=== PATIENT | female | born 1975 | race Caucasian/White ===

== ENCOUNTER 2020-12-02 17:53 | Emergency (ER) | payer MEDICAID ==
--- NOTE | 2020-12-02 18:42 | PCM.EKG ---
#1 Interpretation EKG Date: 12/02/20 Time: 18:00 Rhythm: NSR ST-T: Normal
--- NOTE | 2020-12-02 19:48 | EDM.PDOC ---
ED HPI GENERAL MEDICAL PROBLEM - General Chief Complaint: General Stated Complaint: CHEST PAIN, HIGH BP Time Seen by Provider: 12/02/20 19:45 - History of Present Illness INITIAL COMMENTS - FREE TEXT/NARRATIVE: History of present illness: [] The patient complains of dizziness for 3 to 4 days. She feels like she is spinning when she opens her eyes at times. It lasts for a little while she feels like she cannot get up and walk safely. She does not have any visual disturbance showing rotation or rotation of vertigo. Today she is a little lightheaded. The patient's had sinus congestion off and on but is much is 2 weeks at a time over the last month. She has felt increasingly fatigued for the entire month. Today all day she had tightness in her chest even at rest. Exertion did not change the tightness. There was no diaphoresis nausea or dyspnea. The patient's blood pressure been elevated like 153/90 today. The patient usually has a normal blood pressure. The patient has sinus congestion off and on for a month and has pressure in her sinuses now. Her sinus congestion and postnasal drip is been a little better today than it had been over the last few days. Patient missed her control pill recently. She is only had you sexual contact once in the last month. The patient has no nausea vomiting diarrhea. She has minimal cough and scratchiness in her throat. The patient is not treated for blood pressure or diabetes. She is a non-smoker. Her mother did have heart disease. Review of systems: As per history of present illness and below otherwise all systems reviewed and negative. Past medical history: As per history of present illness and as reviewed below otherwise noncontributory. Surgical history: As per history of present illness and as reviewed below otherwise noncontributory. Social history: No reported history of drug or alcohol abuse. Family history: As per history of present illness and as reviewed below otherwise noncontributory. Physical exam: Constitutional - well developed, well-nourished and in no acute distress HEENT -sinuses slightly tender with the maxillary sinuses being more tender than the frontal. Nares are clear. Voice is normal. Normocephalic, no evidence of trauma - external nose and mouth normal - no mass in neck and no JVD - mucosae moist EYES - full EOM, PERRL, no icterus - no evidence of inflammation, injection, or drainage Respiratory - no respiratory distress, equal bilateral expansion, lungs clear to auscultation and no abnormal lung sounds Cardiovascular - Regular Rhythm with S1 and S2 appreciated and no murmur, gallop or rub. GI - abdomen soft without distension or organomegaly - normal bowel sounds - no guard or rebound Musculoskeletal no gross deformity of long bones or joints - no tenderness, swelling or edema Neurologic - Alert and oriented times four - CN II-XII grossly intact - motor sensory and coordination symmetrically normal Psychiatric - appropriate mood and affect with normal thought content Hematologic - No petechiae or purpura - mucosa appropriate color and sclera not pale - normal nail bed color and refill Integument - no rash or evidence of trauma - normal turgor Diagnostics: [] Therapeutics: [] Impression: [] Plan: [] Definitive disposition and diagnosis as appropriate pending reevaluation and review of above. chest discomfort Pain Score (Numeric/FACES): 7 - Related Data Allergies Allergy/AdvReac Type Severity Reaction Status Date / Time latex Allergy Rash Verified 12/02/20 18:42 Penicillins Allergy Hives Verified 12/02/20 18:42 codeine AdvReac Headache Verified 12/02/20 18:42 Home Meds: Home Meds Amitriptyline [Elavil] 25 mg PO DAILY 07/28/14 [History] RABEprazole [Aciphex] 20 mg PO DAILY 07/28/14 [History] Meclizine [Antivert] 25 mg PO TID PRN #15 tab 12/02/20 [Rx] cephALEXin [Cephalexin] 500 mg PO BID #14 capsule 12/02/20 [Rx] Past Medical History HEENT History: Reports: None Cardiovascular History: Reports: None Respiratory History: Reports: None Gastrointestinal History: Reports: Other (See Below) Other Gastrointestinal History: acid reflux Genitourinary History: Reports: None 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: Musculoskeletal History: Reports: Back Pain, Chronic, Fibromyalgia, Neck Pain, Chronic Neurological History: Reports: Headaches, Chronic, Migraines Psychiatric History: Reports: None Endocrine/Metabolic History: Reports: None 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 Hematologic History: Reports: None Immunologic History: Reports: None Oncologic (Cancer) History: Reports: None Dermatologic History: Reports: None - Infectious Disease History Infectious Disease History: Reports: None - Past Surgical History Head Surgeries/Procedures: Reports: None GI Surgical History: Reports: Appendectomy Female Surgical History: Reports: None Musculoskeletal Surgical History: Reports: Carpal Tunnel, Shoulder Surgery Social & Family History - Caffeine Use Caffeine Use: Reports: Coffee - Recreational Drug Use Recreational Drug Use: No ED ROS GENERAL - Review of Systems Review Of Systems: Comprehensive ROS is negative, except as noted in HPI. ED EXAM, GENERAL - Physical Exam Exam: See Below Free Text/Narrative:: My physical exam is in the HPI Course - Vital Signs Text/Narrative:: 2039 hrs. the chest x-ray is normal by my interpretation The patient had a chest pressure that was the same all day. She also has some increased dyspnea on exertion with a history of asthma. This is probably related to a viral infection but she seemed to have otitis media and sinus congestion that was persistent for months I decided to place her on antibiotics. She had been on intermittent doses of Zithromax for dry eyes according to her. 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 She said the Zithromax upset her stomach. It did not help her sinus symptoms. The patient had the same chest pressure all day and her troponin was less than 0.05 after persistence for more than 12 hours. I did not feel any need to repeat it. She is low risk. Heart score is 1 or 2 and she is low risk. Last Recorded V/S: Last Vital Signs Temp 35.5 C L 12/02/20 18:44 Pulse 80 12/02/20 18:44 Resp 18 12/02/20 18:44 BP 141/89 H 12/02/20 18:44 Pulse Ox 98 12/02/20 18:44 - Orders/Labs/Meds Orders: Active Orders 24 hr Category Date Time Status EKG Documentation Completion [RC] AM Care 12/02/20 19:58 Active Sodium Chloride 0.9% [Saline Flush] Med 12/02/20 19:58 Active 10 ml FLUSH ASDIRECTED PRN Sodium Chloride 0.9% [Saline Flush] Med 12/02/20 19:58 Active 2.5 ml FLUSH ASDIRECTED PRN Saline Lock Insert [OM.PC] Stat Oth 12/02/20 19:58 Ordered Medication Orders Sodium Chloride (Sodium Chloride 0.9% 10 Ml Syringe) 10 ml FLUSH ASDIRECTED PRN PRN Reason: Keep Vein Open Sodium Chloride (Sodium Chloride 0.9% 2.5 Ml Syringe) 2.5 ml FLUSH ASDIRECTED PRN PRN Reason: Keep Vein Open Labs: Laboratory Tests 12/02/20 12/02/20 12/02/20 Range/Units 19:45 19:50 19:50 WBC 7.50 (4.0-11.0) K/uL RBC 4.83 (4.30-5.90) M/uL Hgb 14.6 (12.0-16.0) g/dL Hct 43.1 (36.0-46.0) % MCV 89.2 (80.0-98.0) fL MCH 30.2 (27.0-32.0) pg MCHC 33.9 (31.0-37.0) g/dL RDW Std Deviation 42.7 (28.0-62.0) fl RDW Coeff of Irene 13 (11.0-15.0) % Plt Count 389 (150-400) K/uL MPV 9.10 (7.40-12.00) fL Neut % (Auto) 46.6 L (48.0-80.0) % Lymph % (Auto) 40.4 H (16.0-40.0) % [place] % (Auto) 6.1 (0.0-15.0) % Eos % (Auto) 5.6 (0.0-7.0) % Baso % (Auto) 1.3 (0.0-1.5) % Neut # (Auto) 3.5 (1.4-5.7) K/uL Lymph # (Auto) 3.0 H (0.6-2.4) K/uL [place] # (Auto) 0.5 (0.0-0.8) K/uL Eos # (Auto) 0.4 (0.0-0.7) K/uL Baso # (Auto) 0.1 (0.0-0.1) K/uL Nucleated RBC % 0.0 /100WBC Nucleated RBCs # 0 K/uL Sodium 139 (136-145) mmol/L Potassium 3.4 L (3.5-5.1) mmol/L Chloride 104 (98-107) mmol/L Carbon Dioxide 26.8 (21.0-32.0) mmol/L BUN 8 (7.0-18.0) mg/dL Creatinine 1.0 (0.6-1.0) mg/dL Est Cr Clr Drug Dosing 58.77 mL/min Estimated GFR (MDRD) 60.0 ml/min Glucose 87 (74-106) mg/dL Calcium 7.9 L (8.5-10.1) mg/dL Total Bilirubin 0.2 (0.2-1.0) mg/dL AST 21 (15-37) IU/L ALT 27 (14-63) IU/L Alkaline Phosphatase 47 (46-116) U/L Troponin I (0.000-0.056) ng/mL Total Protein 8.3 H (6.4-8.2) g/dL Albumin 3.9 (3.4-5.0) g/dL Globulin 4.4 H (2.6-4.0) g/dL Albumin/Globulin Ratio 0.9 (0.9-1.6) HCG, Qual (NEG) Urine Color YELLOW Urine Appearance CLEAR Urine pH 5.5 (5.0-8.0) Ur Specific [place] 1.020 (1.001-1.035) Urine Protein NEGATIVE (NEGATIVE) mg/dL Urine Glucose (UA) NEGATIVE (NEGATIVE) mg/dL Urine Ketones NEGATIVE (NEGATIVE) mg/dL Urine Occult Blood TRACE-INTACT H (NEGATIVE) Urine Nitrite NEGATIVE (NEGATIVE) Urine Bilirubin NEGATIVE (NEGATIVE) Urine Urobilinogen 0.2 (<2.0) EU/dL Ur Leukocyte Esterase NEGATIVE (NEGATIVE) Urine RBC 1-3 (0-2/HPF) Urine WBC 0-1 (0-5/HPF) Ur Epithelial Cells RARE (NONE-FEW) Urine Bacteria RARE (NEGATIVE) Urine Mucus LIGHT (NONE-MOD) 12/02/20 12/02/20 Range/Units 19:50 19:50 WBC (4.0-11.0) K/uL RBC (4.30-5.90) M/uL Hgb (12.0-16.0) g/dL Hct (36.0-46.0) % MCV (80.0-98.0) fL MCH (27.0-32.0) pg MCHC (31.0-37.0) g/dL RDW Std Deviation (28.0-62.0) fl RDW Coeff of Irene (11.0-15.0) % Plt Count (150-400) K/uL MPV (7.40-12.00) fL Neut % (Auto) (48.0-80.0) % Lymph % (Auto) (16.0-40.0) % [place] % (Auto) (0.0-15.0) % Eos % (Auto) (0.0-7.0) % Baso % (Auto) (0.0-1.5) % Neut # (Auto) (1.4-5.7) K/uL Lymph # (Auto) (0.6-2.4) K/uL [place] # (Auto) (0.0-0.8) K/uL Eos # (Auto) (0.0-0.7) K/uL Baso # (Auto) (0.0-0.1) K/uL Nucleated RBC % /100WBC Nucleated RBCs # K/uL Sodium (136-145) mmol/L Potassium (3.5-5.1) mmol/L Chloride (98-107) mmol/L Carbon Dioxide (21.0-32.0) mmol/L BUN (7.0-18.0) mg/dL Creatinine (0.6-1.0) mg/dL Est Cr Clr Drug Dosing mL/min Estimated GFR (MDRD) ml/min Glucose (74-106) mg/dL Calcium (8.5-10.1) mg/dL Total Bilirubin (0.2-1.0) mg/dL AST (15-37) IU/L ALT (14-63) IU/L Alkaline Phosphatase (46-116) U/L Troponin I < 0.050 (0.000-0.056) ng/mL Total Protein (6.4-8.2) g/dL Albumin (3.4-5.0) g/dL Globulin (2.6-4.0) g/dL Albumin/Globulin Ratio (0.9-1.6) HCG, Qual NEGATIVE (NEG) Urine Color Urine Appearance Urine pH (5.0-8.0) Ur Specific [place] (1.001-1.035) Urine Protein (NEGATIVE) mg/dL Urine Glucose (UA) (NEGATIVE) mg/dL Urine Ketones (NEGATIVE) mg/dL Urine Occult Blood (NEGATIVE) Urine Nitrite (NEGATIVE) Urine Bilirubin (NEGATIVE) Urine Urobilinogen (<2.0) EU/dL Ur Leukocyte Esterase (NEGATIVE) Urine RBC (0-2/HPF) Urine WBC (0-5/HPF) Ur Epithelial Cells (NONE-FEW) Urine Bacteria (NEGATIVE) Urine Mucus (NONE-MOD) Meds: Medications Generic Name Dose Route Start Last Admin Trade Name Freq PRN Reason Stop Dose Admin Sodium Chloride 10 ml 12/02/20 19:58 Sodium Chloride 0.9% 10 Ml Syringe FLUSH ASDIRECTED PRN Keep Vein Open Sodium Chloride 2.5 ml 12/02/20 19:58 Sodium Chloride 0.9% 2.5 Ml Syringe FLUSH ASDIRECTED PRN Keep Vein Open Discontinued Medications Generic Name Dose Route Start Last Admin Trade Name Freq PRN Reason Stop Dose Admin Meclizine HCl 25 mg 12/02/20 20:55 12/02/20 21:06 Meclizine 25 Mg Tab PO 12/02/20 20:56 25 mg ONETIME ONE Administration Departure - Departure Time of Disposition: 21:27 Disposition: Home, Self-Care 01 Condition: Good Clinical Impression: Sinusitis, Left otitis media, Dizziness - Discharge Information Prescriptions: Meclizine [Antivert] 25 mg PO TID PRN #15 tab PRN Reason: Dizziness cephALEXin [Cephalexin] 500 mg PO BID #14 capsule Instructions: Otitis Media, Adult, [id number], Sinusitis, Adult, [id number], Dizziness Referrals: PCP,Not In Area [Primary Care Provider] - Forms: ED Department Discharge Additional Instructions: [facility] - Primary Care [address] [place] [id number] [address] [id number] The following information is given to patients seen in the emergency department who are being discharged to home. This information is to outline your options for follow-up care. We provide all patients seen in our emergency department with a follow-up referral. The need for follow-up, as well as the timing and circumstances, are variable depending upon the specifics of your emergency department visit. If you don't have a primary care physician on staff, we will provide you with a referral. We always advise you to contact your personal physician following an emergency department visit to inform them of the circumstance of the visit and for follow-up with them and/or the need for any referrals to a consulting specialist. The emergency department will also refer you to a specialist when appropriate. This referral assures that you have the opportunity for follow-up care with a specialist. All of these measure are taken in an effort to provide you with optimal care, which includes your follow-up. Under all circumstances we always encourage you to contact your private physician who remains a resource for coordinating your care. When calling for follow-up care, please make the office aware that this follow-up is from your recent emergency room visit. If for any reason you are refused follow-up, please contact the [facility] Emergency Department at and asked to speak to the emergency department charge nurse. Sepsis Event Note (ED) - Evaluation Sepsis Screening Result: No Definite Risk - Focused Exam Vital Signs: Vital Signs Temp Pulse Resp BP Pulse Ox 12/02/20 18:44 35.5 C L 80 18 141/89 H 98 - My Orders Last 24 Hours: My Active Orders 12/02/20 19:58 EKG Documentation Completion [RC] AM Sodium Chloride 0.9% [Saline Flush] 10 ml FLUSH ASDIRECTED PRN Sodium Chloride 0.9% [Saline Flush] 2.5 ml FLUSH ASDIRECTED PRN Saline Lock Insert [OM.PC] Stat - Assessment/Plan Last 24 Hours: My Active Orders 12/02/20 19:58 EKG Documentation Completion [RC] AM Sodium Chloride 0.9% [Saline Flush] 10 ml FLUSH ASDIRECTED PRN Sodium Chloride 0.9% [Saline Flush] 2.5 ml FLUSH ASDIRECTED PRN Saline Lock Insert [OM.PC] Stat
[2020-12-02] MEDS ORDERED: Sodium Chloride 0.9% 2.5 ML Syringe FLUSH PRN (19:58)
[2020-12-02] MEDS ORDERED: Sodium Chloride 0.9% 10 ML Syringe FLUSH PRN (19:58)
[2020-12-02 20:15] LABS: CARBON DIOXIDE,CO2 26.8 mmol/L (21.0-32.0); POTASSIUM,K 3.4 mmol/L (3.5-5.1)
--- NOTE | 2020-12-02 20:49 | CR ---
INDICATION: Chest pain and weakness TECHNIQUE: Chest radiograph 1 view COMPARISON: None FINDINGS: Mediastinum: The mediastinum is normal in appearance. The heart silhouette is normal in size and morphology. Lung: Both lungs are unremarkable in appearance. No sign of pleural effusion seen. No pneumothorax is identified. Bone and Soft tissue: Unremarkable for age. IMPRESSION: 1. No acute cardiopulmonary disease is seen. Dictated by: Domingo Alonzo MD @ 12/02/2020 20:47:52 (Electronically Signed)
[2020-12-02] MEDS ORDERED: Meclizine 25 MG Tab PO ONE (20:55)
== END 2020-12-02 21:40 | disposition home or self-care (01) ==
LOC: MW.ED 17:53
DX: R42 Dizziness and giddiness (principal); H66.92 Otitis media, unspecified, left ear; J32.9 Chronic sinusitis, unspecified; Z91.040 Latex allergy status; Z88.5 Allergy status to narcotic agent; Z88.0 Allergy status to penicillin
CPT/HCPCS: 36415; 71045; 80053; 81001; 84484; 84703; 85025; 93005; 99284; A9270; 99283

== ENCOUNTER 2020-12-14 12:36 | Emergency (ER) | payer MEDICAID ==
[2020-12-14] MEDS ORDERED: Sodium Chloride 0.9% 1,000 ML IV ONE (12:38)
[2020-12-14] MEDS ORDERED: Sodium Chloride 0.9% 2.5 ML Syringe FLUSH PRN (12:38)
[2020-12-14] MEDS ORDERED: Sodium Chloride 0.9% 10 ML Syringe FLUSH PRN (12:38)
--- NOTE | 2020-12-14 12:53 | EDM.PDOC ---
ED HPI GENERAL MEDICAL PROBLEM - General Stated Complaint: DIZZY,SWEATY,SHAKY Time Seen by Provider: 12/14/20 12:47 Source of Information: Reports: Patient History Limitations: Reports: No Limitations - History of Present Illness INITIAL COMMENTS - FREE TEXT/NARRATIVE: HISTORY AND PHYSICAL: History of present illness: Patient is a 45-year-old female who presents emergency room today via EMS. Patient states that she went shopping at [employer] this morning and developed a headache, sweating, and dizziness. Patient states that she felt really hot when this started and she felt as though she was going to pass out and fall down. Patient states that she had to sit down due to feeling like she was going to faint. Patient does endorse a history of migraine headaches but she states that this headache feels different from her normal headaches. Patient reports ongoing dizziness and weakness in the emergency room. Approximately a week ago, she was seen in the ED for similar symptoms and concern of elevated BP of 150's/90's. Patient reports that yesterday she saw her doctor and was started today on Lisinopril/HCTZ (first dose today at 5am). Patient reports that she has had no sick contacts recently no history of COVID and no COVID-19 vaccine. Patient denies chest pain, nausea, vomiting, diarrhea. Patient states that she ate and drink normally and felt fine this morning. Review of systems: As per history of present illness and below otherwise all systems reviewed and negative. Past medical history: As per history of present illness and as reviewed below otherwise noncontributory. Surgical history: As per history of present illness and as reviewed below otherwise noncontributory. Social history: See social history for further information Family history: As per history of present illness and as reviewed below otherwise noncontributory. Physical exam: General: Well developed and well nourished. Alert and orientated x 3. Nontoxic in appearance and in no acute distress. Vital signs are stable and have been reviewed by me. Nursing notes were reviewed. HEENT: Atraumatic, normocephalic, pupils equal and reactive bilaterally, negative for conjunctival pallor or scleral icterus, mucous membranes moist, TMs normal bilaterally, throat clear, neck supple, nontender, trachea midline. No drooling or trismus noted. No meningeal signs. No hot potato voice noted. Lungs: Clear to auscultation bilaterally. No wheezes, rales, or rhonchi. Chest nontender. Normal work of breathing, no accessory muscles used. Heart: S1S2, regular rate and rhythm without overt murmur, gallops, or rubs. No JVD. No peripheral edema Abdomen: Soft, nondistended, nontender. Normoactive bowel sounds. Negative for masses or costovertebral tenderness. Pelvis: Stable nontender. Genitourinary/Rectal: Deferred. Skin: Intact, warm, dry. No lesions or rashes noted. Hematologic: No petechiae or purpra. Mucosa appropriate color and normal nail bed color and refill. Extremities: Atraumatic, moves all extremities per self without difficulty or deficits, negative for cords or calf pain. Neurovascular unremarkable. Neuro: Awake, alert, oriented. Cranial nerves II through XII unremarkable. Cerebellum unremarkable. Motor and sensory unremarkable throughout. Exam nonfocal. Psychiatric: Mood and affect are appropriate. Normal thought process. Answering questions appropriately. Notes: *This patient was seen and evaluated during the 2019 SARS-CoV-2 novel coronavirus pandemic period. Community viral transmission is ongoing at time of this encounter and the emergency department is operating under pandemic response procedures. Patient is a 45-year-old female who presents emergency department via EMS today for weakness, headache, diaphoresis, and dizziness. Examined vital signs are unremarkable. Will rule out infectious, metabolic, or cardiac reasons for her symptoms today. Labs ordered. She declines wanting COVID-19 testing. She also declines wanting Meclizine, stating she has had this before and will worsen her headache. No orthostatic changes with position changes. Lab work is unremarkable. Head CT shows no acute findings. CXR shows mildly increased interstitial markings like ly representing pulmonary vascular congestion. Reviewing the patient's previous ER visits and talking further with her it sounds like she has had these symptoms intermittently on and off over the past few months. This episode today could be related to recently starting the lisinopril/HCTZ, although this is unlikely as she has not had any episodes of hypotension while here. Encouraged her to con taty to monitor her blood pressures at home as she does have a cuff. I have talked with the patient about today's findings, in addition to providing specific details for plan of care. Reassessment at the time of disposition demonstrates that the patient is in no acute distress. The patient is stable for discharge, counseling was provided and we discussed in great detail signs and symptoms that would prompt them to return to the Emergency Department. Medication, follow up and supportive care measures were reviewed and discussed. Voices understanding and is agreeable to plan of care. Denies any further questions or concerns at this time. Diagnostics: CBC, CMP, hCG, EKG, UA Therapeutics: Meclizine (declined), NS Prescription: None Impression: Dizziness Plan: 1. You were evaluated today on an emergent basis. Your lab work, EKG, chest x- ray, and head CT are within normal limits. You symptoms may be caused by your new medication (Lisinopril/HCTZ) or viral illness. Please continue to monitor your symptoms, if persist - follow up with your primary care provider as you may need medications adjusted. 2. You can alternate Tylenol and ibuprofen as needed for pain and fever manage ment. 3. We encourage you to follow up with your primary care provider and/or recommended specialist in the next few days for re-evaluation and further care/management. 4. If your symptoms should worsen, new symptoms develop or any of the signs and symptoms we discussed should arise please return to the emergency room or call 911 (if needed). Definitive disposition and diagnosis as appropriate pending reevaluation and review of above. - Related Data Allergies Allergy/AdvReac Type Severity Reaction Status Date / Time latex Allergy Rash Verified 12/14/20 12:59 Penicillins Allergy Hives Verified 12/14/20 12:59 codeine AdvReac Headache Verified 12/14/20 12:59 Home Meds: Home Meds Amitriptyline [Elavil] 25 mg PO DAILY 07/28/14 [History] Meclizine [Antivert] 25 mg PO TID PRN #15 tab 12/02/20 [Rx] lisinopriL [Lisinopril] 10 mg PO DAILY 12/14/20 [History] Past Medical History HEENT History: Reports: None Cardiovascular History: Reports: None Respiratory History: Reports: None Gastrointestinal History: Reports: Other (See Below) Other Gastrointestinal History: acid reflux Genitourinary History: Reports: None [employer] History: Reports: Musculoskeletal History: Reports: Back Pain, Chronic, Fibromyalgia, Neck Pain, Chronic Neurological History: Reports: Headaches, Chronic, Migraines Psychiatric History: Reports: None Endocrine/Metabolic History: Reports: None Insulin Pump [employer] Activities Coordinator: None Hematologic History: Reports: None Immunologic History: Reports: None Oncologic (Cancer) History: Reports: None Dermatologic History: Reports: None - Infectious Disease History Infectious Disease History: Reports: None - Past Surgical History Head Surgeries/Procedures: Reports: None GI Surgical History: Reports: Appendectomy Female Surgical History: Reports: None Musculoskeletal Surgical History: Reports: Carpal Tunnel, Shoulder Surgery Social & Family History - Caffeine Use Caffeine Use: Reports: Coffee ED ROS GENERAL - Review of Systems Review Of Systems: Comprehensive ROS is negative, except as noted in HPI. ED EXAM, GENERAL - Physical Exam Exam: See Below (See dictation) Course - Vital Signs Last Recorded V/S: Last Vital Signs Temp 96.1 F L 12/14/20 13:01 Pulse 79 12/14/20 15:28 Resp 16 12/14/20 15:28 BP 137/81 12/14/20 15:28 Pulse Ox 98 12/14/20 15:28 Orthostatic Blood Pressure [ 121/76 Standing] Orthostatic Blood Pressure [ 117/71 Sitting] Orthostatic Blood Pressure [ 129/79 Supine] - Orders/Labs/Meds Orders: Active Orders 24 hr Category Date Time Status Saline Lock Insert [OM.PC] Stat Oth 12/14/20 12:38 Ordered Labs: Laboratory Tests 12/14/20 12/14/20 12/14/20 Range/Units 12:53 13:08 13:08 WBC 8.24 (4.0-11.0) K/uL RBC 4.50 (4.30-5.90) M/uL Hgb 13.8 (12.0-16.0) g/dL Hct 39.6 (36.0-46.0) % MCV 88.0 (80.0-98.0) fL MCH 30.7 (27.0-32.0) pg MCHC 34.8 (31.0-37.0) g/dL RDW Std Deviation 41.4 (28.0-62.0) fl RDW Coeff of Irene 13 (11.0-15.0) % Plt Count 329 (150-400) K/uL MPV 8.80 (7.40-12.00) fL Neut % (Auto) 65.0 (48.0-80.0) % Lymph % (Auto) 25.0 (16.0-40.0) % [place] % (Auto) 5.7 (0.0-15.0) % Eos % (Auto) 3.9 (0.0-7.0) % Baso % (Auto) 0.4 (0.0-1.5) % Neut # (Auto) 5.4 (1.4-5.7) K/uL Lymph # (Auto) 2.1 (0.6-2.4) K/uL [place] # (Auto) 0.5 (0.0-0.8) K/uL Eos # (Auto) 0.3 (0.0-0.7) K/uL Baso # (Auto) 0.0 (0.0-0.1) K/uL Nucleated RBC % 0.0 /100WBC Nucleated RBCs # 0 K/uL Sodium 135 L (136-145) mmol/L Potassium 3.5 (3.5-5.1) mmol/L Chloride 99 (98-107) mmol/L Carbon Dioxide 27.0 (21.0-32.0) mmol/L BUN 14 (7.0-18.0) mg/dL Creatinine 1.0 (0.6-1.0) mg/dL Est Cr Clr Drug Dosing 58.77 mL/min Estimated GFR (MDRD) 60.0 ml/min Glucose 93 (74-106) mg/dL Calcium 7.8 L (8.5-10.1) mg/dL Total Bilirubin 0.4 (0.2-1.0) mg/dL AST 17 (15-37) IU/L ALT 24 (14-63) IU/L Alkaline Phosphatase 48 (46-116) U/L Creatine Kinase 118 (26-308) U/L Troponin I < 0.050 (0.000-0.056) ng/mL Total Protein 7.7 (6.4-8.2) g/dL Albumin 3.6 (3.4-5.0) g/dL Globulin 4.1 H (2.6-4.0) g/dL Albumin/Globulin Ratio 0.9 (0.9-1.6) Urine Color YELLOW Urine Appearance CLEAR Urine pH 7.0 (5.0-8.0) Ur Specific [place] 1.010 (1.001-1.035) Urine Protein NEGATIVE (NEGATIVE) mg/dL Urine Glucose (UA) NEGATIVE (NEGATIVE) mg/dL Urine Ketones NEGATIVE (NEGATIVE) mg/dL Urine Occult Blood TRACE-INTACT H (NEGATIVE) Urine Nitrite NEGATIVE (NEGATIVE) Urine Bilirubin NEGATIVE (NEGATIVE) Urine Urobilinogen 0.2 (<2.0) EU/dL Ur Leukocyte Esterase NEGATIVE (NEGATIVE) Urine RBC 0-2 (0-2/HPF) Urine WBC 0-1 (0-5/HPF) Ur Epithelial Cells RARE (NONE-FEW) Urine Bacteria RARE (NEGATIVE) Meds: Medications Discontinued Medications Generic Name Dose Route Start Last Admin Trade Name Freq PRN Reason Stop Dose Admin Sodium Chloride 1,000 mls @ 999 mls/hr 12/14/20 12:38 12/14/20 13:09 Normal Saline IV 12/14/20 13:38 999 mls/hr STAT ONE Administration Meclizine HCl 25 mg 12/14/20 12:59 12/14/20 13:10 Meclizine 25 Mg Tab PO 12/14/20 13:00 Not Given ONETIME ONE Sodium Chloride 10 ml 12/14/20 12:38 12/14/20 13:09 Sodium Chloride 0.9% 10 Ml Syringe FLUSH 10 ml ASDIRECTED PRN Administration Keep Vein Open Sodium Chloride 2.5 ml 12/14/20 12:38 12/14/20 13:09 Sodium Chloride 0.9% 2.5 Ml Syringe FLUSH 2.5 ml ASDIRECTED PRN Administration Keep Vein Open Departure - Departure Time of Disposition: 15:14 Disposition: Home, Self-Care 01 Clinical Impression: Dizziness - Discharge Information Instructions: Dizziness, [id number] [facility] - Forms: ED Department Discharge Additional Instructions: The following information is given to patients seen in the emergency department who are being discharged to home. This information is to outline your options for follow-up care. We provide all patients seen in our emergency department with a follow-up referral. The need for follow-up, as well as the timing and circumstances, are variable depending upon the specifics of your emergency department visit. If you don't have a primary care physician on staff, we will provide you with a referral. We always advise you to contact your personal physician following an emergency department visit to inform them of the circumstance of the visit and for follow-up with them and/or the need for any referrals to a consulting specialist. The emergency department will also refer you to a specialist when appropriate. This referral assures that you have the opportunity for follow-up care with a specialist. All of these measure are taken in an effort to provide you with optimal care, which includes your follow-up. Under all circumstances we always encourage you to contact your private physician who remains a resource for coordinating your care. When calling for follow-up care, please make the office aware that this follow-up is from your recent emergency room visit. If for any reason you are refused follow-up, please contact the [facility] Emergency Department at and asked to speak to the emergency department charge nurse. [facility] [address] [place] [id number] [place] [address] Thank you for choosing the [facility] emergency department in [place] for your medical needs today. It was a pleasure caring for you. Today you were seen in the emergency department for dizziness and feeling of going to pass out. 1. You were evaluated today on an emergent basis. Your lab work, EKG, chest x- ray, and head CT are within normal limits. You symptoms may be caused by your new medication (Lisinopril/HCTZ) or viral illness. Please continue to monitor your symptoms, if persist - follow up with your primary care provider as you may need medications adjusted. 2. You can alternate Tylenol and ibuprofen as needed for pain and fever management. 3. We encourage you to follow up with your primary care provider and/or recommended specialist in the next few days for re-evaluation and further care/management. 4. If your symptoms should worsen, new symptoms develop or any of the signs and symptoms we discussed should arise please return to the emergency room or call 911 (if needed). Sepsis Event Note (ED) - Focused Exam Vital Signs: Vital Signs Temp Pulse Resp BP Pulse Ox 12/14/20 15:28 79 16 137/81 98 12/14/20 13:01 96.1 F L 80 18 123/77 98 - My Orders Last 24 Hours: My Active Orders 12/14/20 12:38 Saline Lock Insert [OM.PC] Stat - Assessment/Plan Last 24 Hours: My Active Orders 12/14/20 12:38 Saline Lock Insert [OM.PC] Stat
[2020-12-14] MEDS: Meclizine 25 MG Tab PO ONE ×2 (13:09→13:10)
[2020-12-14 13:43] LABS: BLOOD UREA NITROGEN,BUN 14 mg/dL (7.0-18.0); CHLORIDE,CL 99 mmol/L (98-107); GLUCOSE RANDOM 93 mg/dL (74-106); POTASSIUM,K 3.5 mmol/L (3.5-5.1); SODIUM,NA 135 mmol/L (136-145)
--- NOTE | 2020-12-14 14:51 | PCM.EKG ---
#1 Interpretation EKG Date: 12/14/20 Time: 13:27 Rhythm: NSR Rate (Beats/Min): 73 [place]: Normal P-Wave: Present QRS: Normal ST-T: Normal QT: Normal Comparison: NA - No Prior EKG EKG Interpretation Comments: Sinus Rhythm
--- NOTE | 2020-12-14 15:10 | CR ---
Indication: Dizziness Comparison: Single view chest December 02, 2020 Technique: Single AP view chest Findings: There is hyperinflation and chronic interstitial change. There are mildly increased interstitial markings likely representing pulmonary vascular congestion. There is no dense consolidation, effusion or pneumothorax. The cardiac silhouette is mildly prominent. The bony thorax is grossly intact. Impression: Mildly increased interstitial markings likely representing pulmonary vascular congestion. Dictated by Darron Thomas MD @ 12/14/2020 3:08:[address] Darron Thomas @ Dec 14 2020 3:08PM
--- NOTE | 2020-12-14 15:15 | CT ---
Indication: Dizziness Technique: Volumetric multidetector CT images of the head were obtained without the administration of low osmolar intravenous contrast. Comparison: None available Findings: There is no intra-axial or extra-axial fluid collection. There is no mass effect or midline shift. The ventricles and sulci are normal in size and position for age. The brain parenchyma is grossly preserved in attenuation and tariq-white differentiation. The orbits and their contents are grossly within normal limits. The bony calvarium is grossly intact. The paranasal sinuses are clear. The mastoid air cells are well aerated. Impression: No acute intracranial abnormality. Please note that all CT scans at this facility use dose modulation, iterative reconstruction, and/or weight-based dosing when appropriate to reduce radiation dose to as low as reasonably achievable. Dictated by Darron Thomas MD @ 12/14/2020 3:12:[address] Darron Thomas @ Dec 14 2020 3:12PM
== END 2020-12-14 15:32 | disposition home or self-care (01) ==
LOC: MW.ED 12:36
DX: R42 Dizziness and giddiness (principal); Z88.5 Allergy status to narcotic agent; Z88.0 Allergy status to penicillin; Z91.040 Latex allergy status
CPT/HCPCS: 36415; 70450; 71045; 80053; 81001; 82550; 84484; 85025; 93005; 99285; J7030; 93010; 99284; A9270-GY